=== PATIENT | female | born 1990 | race African-American/Black ===

== ENCOUNTER 2017-11-12 08:42 | Emergency (ER) | payer MEDICAID ==
[~2017-11-12] VITALS: Ht 165.1 cm; Wt 99.0 kg
[~2017-11-12 08:42] MED LIST: ONDA8TAB9 PO
[2017-11-12 08:53] VITALS: BP 103/49
[2017-11-12] MEDS ORDERED: LIDOcaine 1.5% w/epinephrine 1:200,000 5ml ampul IJ ONE (09:15)
[2017-11-12] MEDS ORDERED: BACDS PO (09:55)
== END 2017-11-12 10:05 | disposition home or self-care (01) ==
LOC: ER 08:42
DX: L02.412 Cutaneous abscess of left axilla (principal); F17.200 Nicotine dependence, unspecified, uncomplicated; F12.90 Cannabis use, unspecified, uncomplicated; Z98.890 Other specified postprocedural states; Z79.899 Other long term (current) drug therapy
CPT/HCPCS: 10060; 99283; A6449; J3490

== ENCOUNTER 2018-02-24 12:04 | Emergency (ER) | payer MEDICAID ==
[~2018-02-24] VITALS: Ht 165.1 cm; Wt 90.0 kg
[2018-02-24 12:43] VITALS: BP 109/67
[2018-02-24] MEDS ORDERED: CLIN300C85 PO (12:54)
[2018-02-24] MEDS ORDERED: ACET1TAB12 PO (12:54)
== END 2018-02-24 13:12 | disposition home or self-care (01) ==
LOC: ER 12:05
DX: K08.89 Other specified disorders of teeth and supporting structures (principal); F12.10 Cannabis abuse, uncomplicated; Z90.6 Acquired absence of other parts of urinary tract
CPT/HCPCS: 99283

== ENCOUNTER 2018-05-29 08:14 | Emergency (ER) | payer MEDICAID ==
[~2018-05-29] VITALS: Ht 165.1 cm; Wt 104.0 kg
[~2018-05-29 08:14] MED LIST changes: +ACET1TAB12 PO; +CLIN300C85 PO
[2018-05-29 08:19] VITALS: BP 128/86
== END 2018-05-29 09:22 | disposition home or self-care (01) ==
LOC: ER 08:14
DX: R09.81 Nasal congestion (principal); R50.9 Fever, unspecified; R05 Cough; F12.90 Cannabis use, unspecified, uncomplicated; Z98.890 Other specified postprocedural states; Z79.2 Long term (current) use of antibiotics; Z79.899 Other long term (current) drug therapy
CPT/HCPCS: 99281

== ENCOUNTER 2018-06-29 08:36 | Emergency (ER) | payer SELFPAY ==
[~2018-06-29] VITALS: Ht 165.1 cm; Wt 90.0 kg
[2018-06-29 08:39] VITALS: BP 119/53
== END 2018-06-29 09:10 | disposition home or self-care (01) ==
LOC: ER 08:36
DX: S93.402A Sprain of unspecified ligament of left ankle, initial encounter (principal); F12.90 Cannabis use, unspecified, uncomplicated; Z79.899 Other long term (current) drug therapy; W01.0XXA Fall on same level from slipping, tripping and stumbling without subsequent striking against object, initial encounter; Y93.89 Activity, other specified; Y92.89 Other specified places as the place of occurrence of the external cause; Y99.8 Other external cause status
CPT/HCPCS: 29540; 73610; 99283

== ENCOUNTER 2018-07-17 12:01 | Emergency (ER) | payer MEDICAID ==
[~2018-07-17] VITALS: Ht 165.1 cm; Wt 99.0 kg
[2018-07-17 12:18] VITALS: BP 130/74
[2018-07-17] MEDS ORDERED: PENI500T2 PO (13:28)
[2018-07-17] MEDS ORDERED: ACET-3068 PO (13:28)
== END 2018-07-17 13:38 | disposition home or self-care (01) ==
LOC: ER 12:01
DX: K04.7 Periapical abscess without sinus (principal); F12.90 Cannabis use, unspecified, uncomplicated
CPT/HCPCS: 99283